=== PATIENT | female | born 1990 | race Caucasian/White ===

== ENCOUNTER 2017-01-26 12:32 | Emergency (ER) | payer OTHER ==
[~2017-01-26] VITALS: Ht 167.6 cm; Wt 66.0 kg
[~2017-01-26 12:32] MED LIST: ACET50TA PO; COLA100C5 PO; IBUP-1114 PO; PRENTAB55 PO; PRENTAB9 PO
[2017-01-26] MEDS ORDERED: FAMOTIDINE IV BAG 20 MG in APPROPRIATE DILUENT 1 EA IV ONE (12:45)
[2017-01-26] MEDS ORDERED: NS 500 ML IV ONE (12:45)
[2017-01-26 14:50] VITALS: BP 136/75
[2017-01-26] MEDS ORDERED: NS 1,000 ML IV ONE (15:30)
[2017-01-26] MEDS ORDERED: ACETAMINOPHEN TAB 650MG DOSE (2X325MG) PO ONE (15:30)
[2017-01-26] MEDS ORDERED: EPIP0.3I2 IJ (16:37)
== END 2017-01-26 16:55 | disposition home or self-care (01) ==
LOC: EDBD 12:32 → M ED 12:32
DX: R06.02 Shortness of breath (principal); Z91.030 Bee allergy status; Z88.0 Allergy status to penicillin; Z88.1 Allergy status to other antibiotic agents; Z91.040 Latex allergy status; Z79.899 Other long term (current) drug therapy